=== PATIENT | male | born 1960 | race Caucasian/White ===

== ENCOUNTER 2020-08-24 11:02 | Inpatient (IN) | payer BC ==
[~2020-08-24] VITALS: Ht 180.3 cm; Wt 113.0 kg
[2020-08-24] MEDS ORDERED: LEVO75TA5 PO (11:54)
[2020-08-24] MEDS ORDERED: GABA600T7 PO (11:54)
[2020-08-24] MEDS ORDERED: TERA5CAP3 PO (11:54)
[2020-08-24] MEDS ORDERED: CHLORHEXIDINE 15 ML UDC ONE (12:05)
[2020-08-24 12:24] VITALS: BP 133/76
[2020-08-24] MEDS ORDERED: CHLORHEXIDINE 15 ML UDC PO ONE (12:30)
[2020-08-24] MEDS ORDERED: LACTATED RINGERS 1,000 ML IV SCH (12:30)
[2020-08-24] MEDS ORDERED: MIDAZOLAM 1 MG/ML, 2ML ONE (15:54)
[2020-08-24] MEDS ORDERED: LIDOCAINE/PF 1%, 30ML ONE (16:14)
[2020-08-24] MEDS ORDERED: BUPIVACAINE/PF 0.25% ONE (16:14)
[2020-08-24] MEDS ORDERED: BUPIVACAINE/PF 0.5% ONE (16:14)
[2020-08-24] MEDS ORDERED: DEXAMETHASONE 4 MG/ML, 5ML ONE ×2 (16:14→16:52)
[2020-08-24] MEDS ORDERED: EPINEPHRINE 1 MG/ML, 1ML ONE (16:15)
[2020-08-24] MEDS ORDERED: BACITRACIN 50,000 UNIT ONE (16:15)
[2020-08-24] MEDS ORDERED: INDIGO CARMINE 0.8%, 5ML ONE (16:16)
[2020-08-24] MEDS ORDERED: PROPOFOL 10 MG/ML, 20ML ONE (16:52)
[2020-08-24] MEDS ORDERED: SUCCINYLCHOLINE 20 MG/ML, 10ML ONE (16:52)
[2020-08-24] MEDS ORDERED: CEFAZOLIN 1,000 MG ONE (16:52)
[2020-08-24] MEDS ORDERED: ONDANSETRON 2MG/ML, 2ML ONE ×2 (16:52→19:05)
[2020-08-24] MEDS ORDERED: FENTANYL PF 250 MCG/5ML ONE (17:05)
[2020-08-24] MEDS ORDERED: FENTANYL PF 100 MCG/2ML ONE (18:38)
[2020-08-24] MEDS ORDERED: OXYcodone 5 MG/5 ML ORAL.SOL UDC PO PRN (19:30)
[2020-08-24] MEDS ORDERED: FENTANYL PF 100 MCG/2ML IV PRN (19:30)
[2020-08-24] MEDS ORDERED: MEPERIDINE/PF 25MG/0.5ML IVPush PRN (19:30)
[2020-08-24] MEDS ORDERED: ACETAMINOPHEN 325 MG TABLET PO PRN (19:30)
[2020-08-24] MEDS ORDERED: MIDAZOLAM 1 MG/ML, 2ML IV PRN (19:30)
[2020-08-24] MEDS ORDERED: ONDANSETRON 2MG/ML, 2ML IVPush PRN (19:30)
[2020-08-24] MEDS ORDERED: PROMETHAZINE 25 MG/ML, 1ML IVPush PRN (19:30)
[2020-08-24] MEDS ORDERED: PROMETHAZINE 12.5 MG SUPP PR PRN (19:30)
[2020-08-24] MEDS ORDERED: EPHEDRINE 50 MG/ML, 1ML IVPush PRN (19:30)
[2020-08-24] MEDS ORDERED: ALBUTEROL SULFATE 2.5 MG/3 ML NPPB PRN (19:30)
[2020-08-24] MEDS ORDERED: hydrALAzine 20 MG/ML, 1ML IV PRN (19:30)
[2020-08-24] MEDS ORDERED: DIPHENHYDRAMINE 50 MG/ML, 1ML IVPush PRN ×2 (19:30)
[2020-08-24] MEDS ORDERED: LABETALOL 5MG/ML, 20ML IV PRN ×2 (19:30→23:00)
[2020-08-24] MEDS ORDERED: DIAZEPAM 5 MG/ML, 2ML IVPush PRN (19:30)
[2020-08-24] MEDS ORDERED: HYDROmorphone 1 MG/ML, 1ML INJ ONE (20:13)
[2020-08-24] MEDS ORDERED: OXYcodone 5 MG/5 ML ORAL.SOL UDC ONE (20:13)
[2020-08-24] MEDS: HYDROmorphone 1 MG/ML, 1ML INJ IVPush PRN ×2 (20:15→20:30)
[2020-08-24 21:15] VITALS: BP 149/85
[2020-08-24] MEDS ORDERED: ACETAMINOPHEN 650 MG SUPP PR PRN (22:30)
[2020-08-24] MEDS ORDERED: OXYcodone IR 5MG TABLET PO PRN (22:30)
[2020-08-24] MEDS ORDERED: ACETAMINOPHEN 500 MG TABLET PO PRN (22:30)
[2020-08-24] MEDS ORDERED: GABAPENTIN MC SCH (23:00)
[2020-08-24] MEDS ORDERED: DIAZEPAM 5 MG/ML, 2ML IV PRN (23:00)
[2020-08-24] MEDS ORDERED: ONDANSETRON 2MG/ML, 2ML IV PRN (23:00)
[2020-08-24] MEDS ORDERED: DIAZEPAM 5 MG TABLET PO PRN (23:00)
[2020-08-24] MEDS: DEXAMETHASONE 4 MG/ML, 1ML IV SCH (23:05)
[2020-08-25 00:27] VITALS: BP 136/76
[2020-08-25] MEDS: CEFAZOLIN PMX 1GM/50ML 50 ML IVPB SCH ×2 (00:41→08:45)
[2020-08-25] MEDS: D5%-0.9% NACL+KCL 20MEQ 1,000 ML IV SCH ×2 (01:19→08:45)
[2020-08-25 04:10] VITALS: BP 135/76
[2020-08-25] MEDS: DEXAMETHASONE 4 MG/ML, 1ML IV SCH ×2 (05:31→11:06)
[2020-08-25 06:52] VITALS: BP 108/64
[2020-08-25] MEDS ORDERED: GABAPENTIN 300 MG CAPSULE PO SCH (09:00)
[2020-08-25] MEDS ORDERED: SENNA/DOCUSATE TABLET PO SCH (09:00)
[2020-08-25 13:54] VITALS: BP 118/63
== END 2020-08-25 14:58 | disposition home or self-care (01) | DRG 473 ==
LOC: OUT 11:02 → 4NE 21:20 → OUT 21:37 → 4NE 21:38 → DCLOUNGE 08-25 14:48
PROVIDERS: ADMIT Orthopaedic Surgery Orthopaedic Surgery of the Spine; ATTEND Orthopaedic Surgery Orthopaedic Surgery of the Spine
PROC: 0RB30ZZ Excision of Cervical Vertebral Disc, Open Approach (ICD-10-PCS; 2020-08-24)
PROC: 4A11X4G Monitoring of Peripheral Nervous Electrical Activity, Intraoperative, External Approach (ICD-10-PCS; 2020-08-24)
PROC: 0RG20A0 Fusion of 2 or more Cervical Vertebral Joints with Interbody Fusion Device, Anterior Approach, Anterior Column, Open Approach (ICD-10-PCS; principal; 2020-08-24 13:30)
DX: M50.122 Cervical disc disorder at C5-C6 level with radiculopathy (principal); M50.123 Cervical disc disorder at C6-C7 level with radiculopathy; M47.892 Other spondylosis, cervical region; M48.02 Spinal stenosis, cervical region; Z20.822 Contact with and (suspected) exposure to COVID-19; E03.9 Hypothyroidism, unspecified; M10.9 Gout, unspecified; N40.0 Benign prostatic hyperplasia without lower urinary tract symptoms
CPT/HCPCS: 72040; J3490; S0020; 87635; 95938; 95941; C1713; G0378; J0171; J0690; J1100; J1170; J2250; J2270; J2405; J2704; J3010; C1762; C1889; J0330; J3480; J7120